=== PATIENT | male | born 1965 ===

== ENCOUNTER → 2017-11-08 | Outpatient (CLI) | payer OTHER ==
[2017-11-08 18:01] LABS: HEMATOCRIT 25.3 % (39.0-53.0); HEMOGLOBIN 8.8 g/dL (13.0-17.5)
== END | disposition home or self-care (01) ==
LOC: LAB 17:48
PROVIDERS: ATTEND Internal Medicine Nephrology
DX: N18.6 End stage renal disease (principal)
CPT/HCPCS: 36415; 85014; 85018